=== PATIENT | male | born 1965 | race Caucasian/White ===

== ENCOUNTER 2021-07-24 14:17 | Outpatient (CLI) | payer OTHER, SELFPAY ==
--- NOTE | ~2021-07-24 | XR_ITS ---
EXAMINATION: XR chest 2V 07/24/2021 14:40 INDICATION: Dyspnea PROCEDURE: 2 view chest COMPARISON: Comparison to multiple prior studies sequentially, with oldest reviewed study dated 02/24. FINDINGS: The lungs are clear. The cardiomediastinal silhouette is within normal limits. There are no pleural effusions. There is no pneumothorax suspected. IMPRESSION: 1: NO ACUTE CARDIOPULMONARY DISEASE. Reviewed, dictated and finalized at location A. ADMINISTRATOR
== END 2021-07-24 14:18 | disposition home or self-care (01) ==
PROVIDERS: PCP Family Medicine; Visit Provider Internal Medicine Nephrology
DX: R06.00 Dyspnea, unspecified (principal)
CPT/HCPCS: 71046

== ENCOUNTER 2021-07-28 08:49 | Observation (INO) | payer OTHER, SELFPAY ==
[2021-07-28] VITALS (15 sets, daily range): BP systolic 118–154; BP diastolic 59–85; PULSE 60–117; RESP 16–22; TEMP 35.8–37.3; O2SAT 96–100; BMI 35.9
--- NOTE | ~2021-07-28 | XR_ITS ---
EXAMINATION: XR chest 2V DATE: 07/28/2021 09:16 INDICATION: Dyspnea on exertion. TECHNIQUE: Frontal and lateral views of the chest were obtained. COMPARISON: Chest 2 views 07/24/2021 FINDINGS: There is mild atelectasis in left lower lung zone. No pleural effusion or pneumothorax. The heart size is normal. IMPRESSION: 1. Mild atelectasis in left lower lung zone. Reviewed, dictated and finalized at location A. ORK SYSTEMS OPERATOR
--- NOTE | ~2021-07-28 | NM_ITS ---
EXAMINATION: NM koko stress w perfusion DATE: 07/30/2021 11:52 INDICATION: Dyspnea on exertion. TECHNIQUE: Rest images were obtained following intravenous administration of 10 mCi Tc99m tetrofosmin (Myoview). The patient was infused intravenously with Lexiscan (regadenoson). Then, 31 mCi Tc99m tet rofosmin (Myoview) was administered intravenously, and stress images were obtained. Data was reconstr ucted into short axis and horizontal and vertical long axis SPECT images. Gated SPECT images were als o obtained. COMPARISON: None. FINDINGS: There is no definite reversible or fixed perfusion abnormality to suggest ischemia or infar ction. There is no segmental wall motion abnormality. Left ventricular ejection fraction measures 6 7%. IMPRESSION: 1. No definite ischemia or infarct. 2. Normal left ventricular ejection fraction measuring 67%. Reviewed, dictated and finalized at location A. ORATE ASSOCIATE
[2021-07-28 09:01] LABS: Glucose Point of Care 405 mg/dl (65-105)
--- NOTE | 2021-07-28 09:07 | ECG_ITS ---
Measurements Intervals [place] Rate: 66 P: 23 WI: 143 QRS: -1 QRSD: 129 T: -2 QT: 380 QTc: 400 Interpretive Statements SINUS RHYTHM RIGHT BUNDLE BRANCH BLOCK [120+ ms QRS DURATION, UPRIGHT V1, 40+ ms S IN I/aVL/V4/V5/V6] ABNORMAL ECG NO PREVIOUS ECG AVAILABLE FOR COMPARISON Electronically Signed On 07-28-2021 14:31:31 ENROBING MACHINE FEEDER by Satinder Jiménez M.D.
--- NOTE | 2021-07-28 09:10 | ED.RECABL ---
HPI - Recheck/Abnormal Lab/Rx General Chief Complaint: Recheck/Abnormal Lab/Rx Stated Complaint: high blood sugar Time Seen by Provider: 07/28/21 08:53 Source: patient, RN notes reviewed and old records reviewed Mode of arrival: ambulatory Limitations: no limitations History of Present Illness HPI narrative: This is a 56 year old male with history of hypertension, hyperlipidemia , and microscopic polyangitis (kidney disease) who presents for evaluation of hyperglycemia. Patient checked his blood sugar this morning for the first time in several years and it was elevated to 426. He has been taking cellcept and prednisone to treat his glomerulonephritis. He was evaluated by Dr. Estes on 07/23/21 for symptoms of hyperglycemia. Patient has been having leg cramping, generalized weakness, increased thirst and urination for 1 week. Patient's prednisone is currently being tapered down due to patient's symptoms. His cellcept was increased and prednisone decreased at that visit, and patient is due to get labs drawn in 2 weeks. He has associated nausea with exertion. He is also complaining of some shortness of breath with exertion but state he is not really having chest pain. He denies fever , chills . He denies history of diabetes mellitus. Related Data Home Medications Medication Instructions Recorded Confirmed lisinopril 20 mg PO DAILY 07/28/21 07/28/21 metoprolol tartrate 50 mg PO BID 07/28/21 07/28/21 mycophenolate mofetil 500 mg PO BID 07/28/21 07/28/21 prednisone 20 mg PO TID 07/28/21 07/28/21 Allergies Allergy/AdvReac Type Severity Reaction Status Date / Time No Known Allergies Allergy Verified 07/28/21 09:00 Review of Systems Review of Systems: All systems reviewed & are unremarkable except as noted in HPI and below Constitutional: Constitutional: Denies chills, Denies fever(s) and Reports weakness Eyes: Eyes: Reports change in vision ENT: Reports dizziness and Denies sore throat Cardiovascular: Cardiovascular: Denies chest pain and Denies radiating jaw, neck or arm pain Respiratory: Respiratory: Reports cough and Reports dyspnea Gastrointestinal: Gastrointestinal: Denies abdominal pain, Denies diarrhea, Reports nausea and Denies vomiting Genitourinary: Genitourinary: Reports urinary frequency Endocrine: Endocrine: Reports fatigue, Reports polydipsia and Reports polyuria PMF Past Medical History Medical History (Updated 07/28/21 @ 18:04 by Sandra Jacobo MD) Hyperlipidemia Hypertension 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 Treated with plasmapheresis, pulse steroids, and Cytoxan. Now on mycophenolate mofetil. Followed by Dr. Drew Estes. Mike (2007) Stage 3 chronic kidney disease Surgical History Surgical History No pertinent past surgical history Family History Family History Father Diabetes mellitus Mother Diabetes mellitus Other Cerebrovascular accident Family history of Parkinson's disease Family history of cardiovascular disease Hypertension Social History Social History (Updated 07/28/21 @ 12:38 by Madonna Mota PA-C) Social History: Surrogate decision maker: Code status: Full code. Smoking packs per day: 1 Smoking cigarettes per day: 20.0 Years smoked: 3 Smoking pack-years: 3.00 Smoking status: Former smoker Alcohol intake: never Substance use: never Substance use type: does not use Spiritual care concerns: No Exam Const: General: no acute distress and alert Orientation/consciousness: patient oriented x3 Eyes: EOM: EOMs intact bilaterally Chest: Chest palpation & inspection: normal inspection of the chest Resp: Effort & Inspection: normal respiratory effort and no retractions Auscultation: clear to auscultation bilat
[2021-07-28] MEDS: SODIUM CHLORIDE 0.9% IV 1,000 ML 999 ML IV CONT ×2 (09:27→09:54)
[2021-07-28 09:29] LABS: Add Urine Microscopic? YES; Appearance Urine Clear (Clear); Bilirubin Urine Negative (Negative); Blood Urine 2+ (Negative); Color Urine Yellow (Yellow); Glucose Urine UA 3+ mg/dL (Negative); Ketones Urine Negative (Negative); Leukocyte Esterase Ur Negative LEU/UL (Negative); Nitrate Urine Negative (Negative); Protein Urine 1+ mg/dL (Negative); RBC Urine 0-2 /hpf (0-2); Specific Grav Ur 1.017 (1.001-1.035); Urobilinogen Urine Negative mg/dL (<2.0); WBC Urine 0-3 /hpf
[2021-07-28 09:30] LABS: Basophils Percent Auto 0.3 % (0.2-1.2); Hematocrit 42.4 % (42.0-52.0); Immature Granulocyte Absolute 0.66 K/mm3 (0.00-0.031); Immature Granulocyte Percent A 5.5 % (0-0.5); Lymphocytes Absolute Auto 1.13 K/mm3 (0.9-3.2); Lymphocytes Percent Auto 9.4 % (18.3-44.2); Mean Corpuscular Hemoglobin 28.6 pg (26-34); Mean Corpuscular Volume 86.7 fl (80-100); Mean Platelet Volume 9.3 fl (7.4-10.4); Monocytes Absolute Auto 0.4 K/mm3 (0.1-0.6); Monocytes Percent Auto 3.4 % (2.6-8.5); Neutrophils Absolute Auto 9.8 K/mm3 (1.3-6.7); Neutrophils Percent Auto 81.4 % (45.5-73.1); Platelet Count Result 161 k/mm3 (150-375); Red Blood Count 4.89 M/mm3 (4.6-6.20); Red Cell Distribution Width 14.6 % (11.5-14.5)
[2021-07-28 09:44] LABS: Alanine Aminotransferase 32 U/L (4-50); Albumin Level 3.7 g/dL (3.5-5.1); Alkaline Phosphatase 51 U/L (38-126); Anion Gap 7 mmol/L (8-16); Aspartate Amino Transferase 26 U/L (17-59); Bilirubin,Total 0.8 mg/dL (0.2-1.3); Blood Urea Nitrogen 70 mg/dL (9-20); Calcium 8.9 mg/dL (8.4-10.2); Carbon Dioxide 22 mmol/L (22-30); Chloride 101 mmol/L (98-107); Estimated CRCL calculation 53 ml/min; Estimated Glomerular Filt Rate 37; Glucose 398 mg/dL (65-110); Magnesium 2.9 mg/dL (1.6-2.3); Phosphorus 3.8 mg/dL (2.5-4.5); Potassium 5.2 mmol/L (3.4-5.0); Sodium 130 mmol/L (137-145)
[2021-07-28 09:50] LABS: Beta-Hydroxybutyrate/Acetoacetate 0.19 mmol/L (0.02-0.27)
[2021-07-28] MEDS: INSULIN HUMAN REGULAR (*BKC) 100 UNITS/ML 12 UNITS IV PUSH (09:53)
[2021-07-28 10:23] LABS: Glucose Point of Care 262 mg/dl (65-105)
--- NOTE | 2021-07-28 11:16 | PM.CNNEP ---
Assessment and Plan Assessment and plan (1) Stage 3b chronic kidney disease: Code(s): N18.32 - Chronic kidney disease, stage 3b Status: Chronic Assessment and Plan: baseline creatinine runs around 1.8 - 2.3mg/dl in the last year due to left overs from previous RPGN secondary to P-ANCA vasculitis/microscopic polyangiitis (2) Microscopic polyangiitis: Onset Date: 02/2015 Code(s): M31.7 - Microscopic polyangiitis Status: Chronic Assessment and Plan: diagnosed in 2014 by renal biopsy (although had pulmonary involvement as well) treated with 7 sessions of plasmapheresis, steroids, and cytoxan (with eventually weaning off of prednisone and cytoxan) unfortunately, recurrence noted by serologies, rising creatinine, and increased proteinuria in March/April 2021 restarted on steroids and now cellcept plan to wean steroids and titrate cellcept recheck/reassess for proteinuria (3) New onset type 2 diabetes mellitus: Code(s): E11.9 - Type 2 diabetes mellitus without complications Status: Acute Assessment and Plan: presumably precipitated by steroid use continue to wean steroids as tolerated -- go down to 40mg qday handle bender 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 Will continue to follow. History of Present Illness Reason for Consult Consult date: 07/28/21 Reason for consult: chronic renal failure Chief Complaint Chief complaint: Steroid induced hyperglycemia/acute on chronic karla History of Present Illness Narrative: The patient is a 56-year-old male with a past medical history as outlined below who presents to [facility] Emergency room for further evaluation of hyperglycemia. The patient has a known history of rapidly progressive [place] is secondary to microscopic polyangiitis with associated pulmonary involvement which was diagnosed in February 2015 by renal biopsy. At that time, was treated with a combination of plasmapheresis, pulse dose steroids with subsequent oral prednisone, and Cytoxan with a reasonable response to such therapy. Eventually, it was felt that his disease was in remission and he was weaned off these medications and had been doing reasonably well although he did have some residual renal dysfunction following insult to his kidneys. Unfortunately, outpatient serologies in late March/early April 2021 demonstrated his ANCA being positive once again with a concern that his microscopic polyangiitis had returned particularly since his creatinine and proteinuria had worsened as well. He was restarted on prednisone as well as Cellcept for treatment of this issue. He recently saw Dr. Estes about couple of weeks ago and at that time he had signs/symptoms of possible hyperglycemia with generalized weakness, leg cramps, increased thirst and urination as well as blurry vision. It was decided try to taper him off the prednisone for fear that this could be responsible although he was checking his blood sugars at home and they are running in the high 100s. However, today, he noted his blood sugar to be 426 which was quite higher than what ever had been previously and presented to the ER for further evaluation. Workup and evaluation emergency room demonstrated the patient be hemodynamically stable and his random blood sugar on arrival was 398. Subsequent testing including a chemistry showed a BUN an
[2021-07-28] MEDS: ASPIRIN 81 MG CHEWABLE TABLET 324 MG PO (11:41)
[2021-07-28 11:49] LABS: Hemoglobin A1C 9.1 % (<5.7)
--- NOTE | 2021-07-28 11:55 | PC.NURSE ---
This patient, Erasto Paz, was admitted to IMU Room 207-01. Patient/family oriented to hospital policies and general routines including ID bracelet, bed and alarms, visiting hours, pain management, procedures, bathroom and other care routines, personal items, smoking policy, room service/diet, and visiting hours. Information on how to activate the Rapid Response Team has been discussed. Patient/Family are encouraged to report perceived risks to care and to ask questions if they do not understand what they are told or what they should do.
[2021-07-28 12:25] LABS: Glucose Point of Care 181 mg/dl (65-105)
--- NOTE | 2021-07-28 12:30 | PM.IMHP ---
H&P: HPI History of Present Illness Date/Time: 07/28/21 12:30 Chief Complaint: High blood sugar. Narrative: This is a pleasant 56-year-old male with hypertension and microscopic polyangiitis who presented to the emergency department from home for evaluation of high blood sugar. He was initially diagnosed with microscopic polyangiitis with pulmonary involvement in February 2015 for which she was treated with plasmapheresis, steroids and Cytoxan which was eventually weaned and he has not been on any medications since approximately late 2018. His ANCA turned positive again within the last couple of months with increasing creatinine and proteinuria for which he was once again started on prednisone and mycophenolate mofetil. He saw Dr. Estes last week after developing generalized weakness, leg cramps, increased thirst and urination, and blurry vision that had been going on for about a week. The decision was made to taper him off the prednisone and he has been monitoring his glucose pretty closely at home. Apparently it had been running in the high 100s however today it was 426 and he came in for evaluation. Random glucose on arrival was 398 and a subsequent hemoglobin A1c was 9.1%. His BUN and creatinine were 70 and 1.90 respectively and he had mild electrolyte abnormalities including a sodium of 130 and a potassium of 5.2. All of those numbers have improved with IV fluid rehydration. It is also noted that troponins were drawn upon arrival to the emergency department they did come back mildly elevated at 0.050 and he was admitted to IMU for further monitoring. He denies having experienced any chest pain, however. Currently he is feeling pretty good and has no significant complaints. He denies fever, chills, sweats, cold and flu symptoms, chest pain, pleuritic pain, palpitations, shortness of breath, nausea, vomiting, diarrhea, and dysuria. He has not noticed a decrease in urine output, change in urine color, and he has not noticed any blood in the urine. Review of Systems Review of Systems: Twelve systems were reviewed and are negative except for as per HPI. 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 Treated with plasmapheresis, pulse steroids, and Cytoxan. Now on mycophenolate mofetil. Followed by Dr. Drew Estes. Obstructive sleep apnea on CPAP [place] (2008) Stage 3 chronic kidney disease Surgical History Surgical History No pertinent past surgical history Family History Family History Father Diabetes mellitus Mother Diabetes mellitus Other Cerebrovascular accident Family history of Parkinson's disease Family history of cardiovascular disease Hypertension Social History Social History (Updated 07/28/21 @ 20:53 by Madonna Mota PA-C) Social History: Surrogate decision maker: Chinedu Paz, son. Code status: Full code. Smoking packs per day: 1 Smoking cigarettes per day: 20.0 Years smoked: 3 Smoking pack-years: 3.00 Smoking status: Former smoker Alcohol intake: never Substance use: never Substance use type: does not use Additional living arrangements comments: Resides in [place]. 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 Meds Home Medications and Allergies Home Medications Medication Instructions Recorded Confirmed Type lisinopril 20 mg PO DAILY 07/28/21 07/28/21 History metoprolol tartrate 50 mg PO BID 07/28/21 07/28/21 History mycophenolate mofetil 500 mg PO BID 07/28/21 07/28/21 History prednisone 20 mg PO TID 07/28/21 07/28/21 History Allergies Allergy/AdvReac Type Severity Reaction Status Date / Time No Known Allergies Allergy Verified
[2021-07-28 12:58] LABS: Troponin I 0.049 ng/mL (0.000-0.034)
[2021-07-28 15:46] LABS: Anion Gap 7 mmol/L (8-16); Blood Urea Nitrogen 63 mg/dL (9-20); Carbon Dioxide 22 mmol/L (22-30); Chloride 104 mmol/L (98-107); Estimated CRCL calculation 55 ml/min; Estimated Glomerular Filt Rate 39; Glucose 384 mg/dL (65-110); Sodium 133 mmol/L (137-145)
[2021-07-28 16:16] LABS: Troponin I 0.044 ng/mL (0.000-0.034)
[2021-07-28] MEDS: INSULIN ASPART (*BKC) 100 UNITS/ML SUB-Q (16:40)
[2021-07-28] MEDS: mycophenolate mofetiL 250 MG CAPSULE 1000 MG PO (16:41)
[2021-07-28 16:55] LABS: Glucose Point of Care 347 mg/dl (65-105)
[2021-07-28] MEDS: polyethylene glycoL 3350 17 GM POWD.PACK PO (19:59)
[2021-07-28 20:43] LABS: Glucose Point of Care 285 mg/dl (65-105)
[2021-07-29] VITALS (16 sets, daily range): BP systolic 122–145; BP diastolic 60–71; PULSE 60–100; RESP 14–20; TEMP 36.1–36.6; O2SAT 97–100
--- NOTE | 2021-07-29 03:42 | PCRCNOTE ---
Patient dons and removes CPAP by himself. Patient was on CPAP most of the night with intermittent removal per patient
[2021-07-29 04:33] LABS: Hematocrit 38.4 % (42.0-52.0); Hemoglobin 12.7 g/dL (14.0-18.0); Immature Platelet Fraction Pct 2.1 % (0.9-11.2); Mean Corpuscular HGB Conc 33.1 g/dl (32-36); Mean Corpuscular Volume 87.7 fl (80-100); Mean Platelet Volume 9.5 fl (7.4-10.4); Platelet Count Result 126 k/mm3 (150-375); Red Blood Count 4.38 M/mm3 (4.6-6.20); Red Cell Distribution Width 14.6 % (11.5-14.5); White Blood Count 8.7 K/mm3 (4.5-10.0)
[2021-07-29 04:51] LABS: Alanine Aminotransferase 28 U/L (4-50); Albumin Level 3.1 g/dL (3.5-5.1); Alkaline Phosphatase 47 U/L (38-126); Anion Gap 5 mmol/L (8-16); Aspartate Amino Transferase 30 U/L (17-59); Bilirubin,Total 0.6 mg/dL (0.2-1.3); Blood Urea Nitrogen 55 mg/dL (9-20); Calcium 8.2 mg/dL (8.4-10.2); Carbon Dioxide 25 mmol/L (22-30); Chloride 104 mmol/L (98-107); Estimated CRCL calculation 58 ml/min; Estimated Glomerular Filt Rate 42; Glucose 199 mg/dL (65-110); Magnesium 2.4 mg/dL (1.6-2.3); Potassium 4.3 mmol/L (3.4-5.0); Sodium 134 mmol/L (137-145)
[2021-07-29] MEDS: mycophenolate mofetiL 250 MG CAPSULE 1000 MG PO ×2 (06:26→20:03)
[2021-07-29 08:10] LABS: Glucose Point of Care 217 mg/dl (65-105)
[2021-07-29] MEDS: EMPAGLIFLOZIN 10 MG TABLET PO (08:25)
[2021-07-29] MEDS: predniSONE 20 MG TABLET 40 MG PO (08:25)
[2021-07-29] MEDS: lisinopriL 20 MG TABLET PO (08:26)
[2021-07-29] MEDS: METOPROLOL TARTRATE 50 MG TAB PO ×2 (08:26→20:04)
[2021-07-29] MEDS: INSULIN ASPART (*BKC) 100 UNITS/ML SUB-Q ×3 (08:31→17:05)
--- NOTE | 2021-07-29 08:48 | PM.IMPN ---
Progress Note: A&P Assessment and Plan (1) New onset type 2 diabetes mellitus: Code(s): E11.9 - Type 2 diabetes mellitus without complications Status: Acute Assessment and Plan: Patient presents blurred vision, fatigue, weight loss and dyspnea on exertion and found to have a glucose of 398. He is on prednisone 60 mg for his microscopic polyangiitis. Most likely steroid induced diabetes. No history of diabetes but does have a strong family history. Patient received 12 units of IV insulin yesterday morning on presentation and started on empagliflozin this morning. Prednisone dose has been decreased to 40 mg. development educator and dietitian consult ordered. A1c is 9.1. Will continue with current regiment at this time and monitor. He may need a 2nd oral agent get him closer to goal. Continue sliding scale insulin. Hypoglycemia protocol available as needed. (2) Elevated troponin: Code(s): R77.8 - Other specified abnormalities of plasma proteins Status: Acute Assessment and Plan: Troponins are mildly elevated but have remained flat. EKG showing right bundle branch block but no acute ST T wave changes. Patient has had no chest pain but does have dyspnea on exertion over the past week as well as lightheadedness with walking. This symptom could be related to his untreated diabetes. Elevated troponins could be related to his poor clearance from his CKD. However, he does have risk factors and would benefit from cardiac evaluation. As such, will check echocardiogram. Lexiscan stress test in the morning. Further recommendations as course dictates. Resume aspirin. Check lipids. (3) Microscopic polyangiitis: Onset Date: 02/2015 Code(s): M31.7 - Microscopic polyangiitis Status: Chronic Assessment and Plan: Recently started back on steroids and CellCept as his ANCA turned positive again with an increase in creatinine and proteinuria. Prednisone is being weaned per Dr. Ayala as detailed above. (4) Stage 3 chronic kidney disease: Code(s): N18.30 - Chronic kidney disease, stage 3 unspecified Status: Acute Assessment and Plan: Residual disease from MPA. Creatinine rising recently due to recurrence of his MPA. Cr 1.9 on admission but better with hydration. Mild KEYUR from dehydration related to the untreated DM. Unclear on baseline. BUN elevation related to CKD and steroids. (5) Hypertension: Code(s): I10 - Essential (primary) hypertension Status: Chronic Assessment and Plan: Patient's blood pressure was reviewed on 07/29 Blood pressure remains well controlled. Will continue current medications. (6) Electrolyte abnormality: Code(s): E87.8 - Other disorders of electrolyte and fluid balance, not elsewhere classified Status: Acute Assessment and Plan: Mild hyponatremia and hyperkalemia present on admission. Sodium better at 134 and potassium normalized with IV fluid rehydration. Follow Subjective Date/time seen: 07/29/21 08:48 Interval history: 56yo male with NELDA, CKD, HTN and microscopic polyangiitis here for blurry vision, fatigue and EPSTEIN and found to have DM. Patient's symptoms began about a week ago. Also had weight loss as well. Denies any chest pain. No fever or chills. He was constipated with MiraLax, he is now having bowel movements. Patient has been having shortness of breath with exertion as well as lightheadedness when he walks to the bathroom for example. His last stress test was 6-7 years ago. He is compliant with his BiPAP at night. Exam Narrative: AF 97.0 128/66 100 18 98% ra Gen - NARD Chest - CTA bilaterally, nml RR CV - RRR S1/S2. No murmur. Tele showing STach at times Abd - Soft, obese, NT. Ext - No pedal edema. Neuro - Alert and oriented. Nonfocal exam. Psych - Nml mood and affect Skin - Warm and dry Objective Data Vital Signs Vital Signs: Vital Signs - 24 hr
[2021-07-29] MEDS: ASPIRIN 81 MG CHEWABLE TABLET PO (09:55)
[2021-07-29] MEDS: ENOXAPARIN 40 MG/0.4 ML SYRINGE SUB-Q (09:55)
--- NOTE | 2021-07-29 11:12 | P.PNNP_ITS ---
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 (2) Microscopic polyangiitis: Onset Date: 02/2015 Code(s): M31.7 - Microscopic polyangiitis Status: Chronic Assessment and Plan: * diagnosed in 2014 by renal biopsy (although had pulmonary involvement as well) * treated with 7 sessions of plasmapheresis, steroids, and cytoxan (with eventually weaning off of prednisone and cytoxan) * unfortunately, recurrence noted by serologies, rising creatinine, and increased proteinuria in March/April 2021 * restarted on steroids and now cellcept * plan to wean steroids and titrate cellcept * recheck/reassess for proteinuria (3) New onset type 2 diabetes mellitus: Code(s): E11.9 - Type 2 diabetes mellitus without complications Status: Acute Assessment and Plan: * presumably precipitated by steroid use * continue to wean steroids as tolerated -- go down to 40mg qday * primary special educator and security attendant to see * follow accuchecks and on SSI as well as jardiance for now * hopefully, should continue to improve as steroids are weaned (4) Hypertension: Code(s): I10 - Essential (primary) hypertension Status: Chronic Assessment and Plan: * reasonable control * continue lisinopril (5) Elevated troponin: Code(s): R77.8 - Other specified abnormalities of plasma proteins Status: Acute Assessment and Plan: * as noted by initial labs in ER * stress test ordered given symptoms as well as risk factors Will continue to follow. Subjective Date/time seen: 07/29/21 11:12 No apparent issues or events overnight or earlier this AM; feels reasonably well at the time of my visit; no other acute complaints voiced. Exam Narrative: General: WD/WN male in NAD Heart: normal S1 and S2; no rub Lungs: clear to auscultation Abdomen: soft, nontender, nondistended, positive bowel sounds Extremities: no cyanosis or clubbing; no edema Skin: warm and dry Objective Data Vital Signs Vital Signs: Vital Signs Temp Pulse Resp BP Pulse Ox 07/29/21 10:00 77 07/29/21 08:26 100 07/29/21 08:00 36.1 C L 83 18 128/66 98 07/29/21 06:00 88 07/29/21 04:00 81 16 99 07/29/21 03:45 36.3 C L 60 18 145/68 H 100 07/29/21 02:00 74 07/28/21 23:51 81 16 99 07/28/21 23:50 36.4 C L 86 18 134/67 98 07/28/21 22:55 85 96 07/28/21 20:00 81 16 99 07/28/21 19:33 37.3 C 81 16 118/59 L 99 07/28/21 18:20 85 96 07/28/21 18:00 83 07/28/21 16:42 36.5 C 66 22 H 154/68 H 99 07/28/21 16:00 65 07/28/21 14:00 70 07/28/21 12:23 35.8 C L 60 20 150/75 H 100 07/28/21 12:00 67 07/28/21 11:47 62 16 151/84 H 100 Intake/Output Intake/Output: Intake & Output 07/26/21 07/27/21 07/28/21 07/29/21 23:59 23:59 23:59 23:59 Intake Total 2920 650 Balance 2920 650 Meds/Results Medica
--- NOTE | 2021-07-29 11:12 | PM.PNNEP ---
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 (2) Microscopic polyangiitis: Onset Date: 02/2015 Code(s): M31.7 - Microscopic polyangiitis Status: Chronic Assessment and Plan: diagnosed in 2014 by renal biopsy (although had pulmonary involvement as well) treated with 7 sessions of plasmapheresis, steroids, and cytoxan (with eventually weaning off of prednisone and cytoxan) unfortunately, recurrence noted by serologies, rising creatinine, and increased proteinuria in April 2021 restarted on steroids and now cellcept plan to wean steroids and titrate cellcept recheck/reassess for proteinuria (3) New onset type 2 diabetes mellitus: Code(s): E11.9 - Type 2 diabetes mellitus without complications Status: Acute Assessment and Plan: presumably precipitated by steroid use continue to wean steroids as tolerated -- go down to 40mg qday special education paraeducator and geospatial image analyst to see follow accuchecks and on SSI as well as jardiance for now hopefully, should continue to improve as steroids are weaned (4) Hypertension: Code(s): I10 - Essential (primary) hypertension Status: Chronic Assessment and Plan: reasonable control continue lisinopril (5) Elevated troponin: Code(s): R77.8 - Other specified abnormalities of plasma proteins Status: Acute Assessment and Plan: as noted by initial labs in ER stress test ordered given symptoms as well as risk factors Will continue to follow. Subjective Date/time seen: 07/29/21 11:12 No apparent issues or events overnight or earlier this AM; feels reasonably well at the time of my visit; no other acute complaints voiced. Exam Narrative: General: WD/WN male in NAD Heart: normal S1 and S2; no rub Lungs: clear to auscultation Abdomen: soft, nontender, nondistended, positive bowel sounds Extremities: no cyanosis or clubbing; no edema Skin: warm and dry Objective Data Vital Signs Vital Signs: Vital Signs Temp Pulse Resp BP Pulse Ox 07/29/21 10:00 77 07/29/21 08:26 100 07/29/21 08:00 36.1 C L 83 18 128/66 98 07/29/21 06:00 88 07/29/21 04:00 81 16 99 07/29/21 03:45 36.3 C L 60 18 145/68 H 100 07/29/21 02:00 74 07/28/21 23:51 81 16 99 07/28/21 23:50 36.4 C L 86 18 134/67 98 07/28/21 22:55 85 96 07/28/21 20:00 81 16 99 07/28/21 19:33 37.3 C 81 16 118/59 L 99 07/28/21 18:20 85 96 07/28/21 18:00 83 07/28/21 16:42 36.5 C 66 22 H 154/68 H 99 07/28/21 16:00 65 07/28/21 14:00 70 07/28/21 12:23 35.8 C L 60 20 150/75 H 100 07/28/21 12:00 67 07/28/21 11:47 62 16 151/84 H 100 Intake/Output Intake/Output: Intake & Output 07/26/21 07/27/21 07/28/21 07/29/21 23:59 23:59 23:59 23:59 Intake Total 2920 650 Balance 2920 650 Meds/Results Medications: Active Medications Generic Name Dose Route Start Last Admin Trade Name Freq PRN Reason Stop Dose Admin Aspirin 81 mg 07/29/21 09:05 07/29/21 09:55 Aspirin 81 Mg Chewable Tablet PO 81 mg DAILY@0800 LIZANDRO Administration Dextrose 12.5 gm 07/28/21 13:00 Dextrose 50% 25 Gm/50 Ml Syringe IV PUSH PRN PRN Hypoglycemia Protocol Empagliflozin 10 mg 07/29/21 09:00 07/29/21 08:25 Empagliflozin 10 Mg Tablet PO 10 mg DAILY LIZANDRO Administration Enoxaparin Sodium 40 mg 07/30/21 09:00 Enoxaparin 40 Mg/0.4 Ml Syringe SUB-Q DAILY LIZANDRO Glucagon 1 mg 07/28/21 13:00 Glucagon For Inj 1 Mg Vial IM PRN PRN Hypoglycemia Protocol Glucose 15 gm 07/28/21 13:00 Gl
[2021-07-29 11:58] LABS: Glucose Point of Care 237 mg/dl (65-105)
[2021-07-29] MEDS: GLIMEPIRIDE 1 MG TABLET PO (12:53)
[2021-07-29 13:25] LABS: Creatinine Urine 52.4 mg/dL; Total Protein Urine Random 30 mg/dL; Ur Ttl Prot Creatinine Ratio 0.57 mg/mg (0-0.20)
[2021-07-29 15:49] LABS: Glucose Point of Care 320 mg/dl (65-105)
[2021-07-29 20:11] LABS: Glucose Point of Care 214 mg/dl (65-105)
[2021-07-30] VITALS (10 sets, daily range): BP systolic 107–120; BP diastolic 53–76; PULSE 60–90; RESP 16–20; TEMP 36–36.7; O2SAT 96–99; BMI 34.9
--- NOTE | 2021-07-30 | EST_ITS ---
Patient Info Name: Erasto Paz Age: 56 years : 1965 Gender: Male Ht: 71 in Wt: 250 lbs BSA: 2.42 m2 HR: 89 bpm BP: 112 / 65 mmHg Heart Rhythm: Sinus Rhythm Exam Date: 07/30/2021 10:50 AM Exam Location: [facility] Stress Patient Status: Outpatient Admit Date: 07/28/2021 Staff Ordering Physician: Tariq Engel MD Attending Provider: Denilson Ramsay MD Exercise Technologist: Luz Maria Mcdonnell CT Exercise Physician: Seth Gayle DO Exam Type: CA stress koko w NM Study Info A regadenoson stress test was performed. Summary 1. 1. Negative lexiscan stress test for ischemic ST changes by ECG criteria. 2. 2. Stable hemodynamics throughout the test. 3. 3. Nuclear scan to follow and will be reported separately. Please correlate with it. 4. 4. Patient informed of the above results. Protocol: Lexiscan Stress ECG Details Stage: REST Duration (min): 1 min : 3 sec HR (bpm): 89 SBP (mmHg): 112 DBP (mmHg): 65 Stage: REST Duration (min): 16 min : 37 sec HR (bpm): 76 SBP (mmHg): 112 DBP (mmHg): 65 Stage: STAGE 1 Duration (min): 1 min : 0 sec HR (bpm): 92 SBP (mmHg): 109 DBP (mmHg): 75 Stage: RECOVERY Duration (min): 1 min : 0 sec HR (bpm): 102 SBP (mmHg): 109 DBP (mmHg): 75 Stage: RECOVERY Duration (min): 2 min : 0 sec HR (bpm): 96 SBP (mmHg): 109 DBP (mmHg): 75 Stage: RECOVERY Duration (min): 3 min : 0 sec HR (bpm): 98 SBP (mmHg): 97 DBP (mmHg): 74 Stage: RECOVERY Duration (min): 3 min : 50 sec HR (bpm): 96 SBP (mmHg): 98 DBP (mmHg): 72 Rest HR: 76 bpm Peak HR: 103 bpm Rest Sys BP: 112 mmHg Peak Sys BP: 109 mmHg Max Pred HR: 165 bpm % Max Pred HR: 62 % Target HR: 140 bpm Max RPP: 11,227 bpm*mmHg Termination Reason: Completed protocol Cardiac Symptoms: Shortness of breath Total Time: 1 min : 0 sec Rest Nunez BP: 65 mmHg Peak Nunez BP: 75 mmHg Total Dose: 0.4 mg Resting ECG Sinus rhythm, RBBB. Stress ECG No ST changes. Arrhythmias None. Report Signatures
[2021-07-30 04:48] LABS: Hematocrit 40.3 % (42.0-52.0); Hemoglobin 13.4 g/dL (14.0-18.0); Mean Corpuscular HGB Conc 33.3 g/dl (32-36); Mean Corpuscular Hemoglobin 28.9 pg (26-34); Mean Corpuscular Volume 86.9 fl (80-100); Mean Platelet Volume 9.1 fl (7.4-10.4); Platelet Count Result 133 k/mm3 (150-375); Red Blood Count 4.64 M/mm3 (4.6-6.20); Red Cell Distribution Width 14.6 % (11.5-14.5); White Blood Count 10.3 K/mm3 (4.5-10.0)
[2021-07-30 05:00] LABS: Albumin Level 3.3 g/dL (3.5-5.1); Anion Gap 3 mmol/L (8-16); Blood Urea Nitrogen 52 mg/dL (9-20); Calcium 8.5 mg/dL (8.4-10.2); Carbon Dioxide 27 mmol/L (22-30); Chloride 104 mmol/L (98-107); Cholesterol 274 mg/dL (0-200); Estimated CRCL calculation 49 ml/min; Estimated Glomerular Filt Rate 35; Glucose 158 mg/dL (65-110); HDL Direct 36 mg/dL; Magnesium 2.5 mg/dL (1.6-2.3); Phosphorus 3.7 mg/dL (2.5-4.5); Potassium 4.1 mmol/L (3.4-5.0); Sodium 134 mmol/L (137-145); Triglycerides 356 mg/dL (<150)
[2021-07-30 05:12] LABS: LDL Cholesterol Direct 156 mg/dL
[2021-07-30 05:17] LABS: Band Neutrophils Percent 6 % (0-6); Lymphocytes Absolute Manual 2.57 K/mm3 (1.1-4.5); Monocytes Percent Manual 3 % (3-9); Neutrophils Absolute Manual 7.41 K/mm3 (1.3-6.7); Neutrophils Percent Manual 66 % (46-73); Platelet Estimate Adequate (Adequate); Total Cells Counted 100
[2021-07-30 05:18] LABS: Atypical Lymphocytes Present
--- NOTE | 2021-07-30 06:00 | ECHO_ITS ---
Patient Info Name: Erasto Paz Age: 56 years : 1965 Gender: Male Ht: 71 in Wt: 257 lbs BSA: 2.46 m2 HR: 67 bpm BP: 107 / 53 mmHg Technical Quality: Good Exam Date: 07/30/2021 8:20 AM Exam Location: [facility] Pulmonary Patient Status: Inpatient Admit Date: 07/28/2021 Staff Ordering Physician: Sandra Jacobo MD Mold Technician: Aureliano Blank, RAJANI, RT Attending Provider: Denilson Ramsay MD Referring Physician: dOalis SANCHEZ; Exam Type: CA echo dop color flow w con Study Info Indications R06.00 - Dyspnea, unspecified Complete two-dimensional, color flow and Doppler transthoracic echocardiogram is performed with contrast to opacify the left ventricle and to improve the deliniation of the left ventricle endocardial borders. Summary 1. Left ventricular chamber dimension is normal. 2. Definity contrast administered improved wall motion interpretation. 3. Left ventricular systolic function is normal, estimated at 60-65%. 4. There is mildly increased left ventricular wall thickness. 5. The left ventricular diastolic function is grade I diastolic dysfunction. 6. E/e' 7 is not elevated. 7. No pulmonary hypertension, estimated pulmonary arterial systolic pressure is 31 mmHg. Left Ventricle E/e' 7 is not elevated. Definity contrast administered improved wall motion interpretation. Left ventricular chamber dimension is normal. Left ventricular systolic function is normal, estimated at 60-65%. There is mildly increased left ventricular wall thickness. The left ventricular diastolic function is grade I diastolic dysfunction. Right Ventricle Right ventricular systolic function is normal and with normal TAPSE 2.0 cm. Right ventricular chamber dimension is normal. Left Atria Left atrial chamber dimension is normal. Right Atria Right atrial chamber dimension is normal. Aortic Valve The aortic valve is trileaflet. There is no aortic valve stenosis. There is no aortic valve regurgitation. Pulmonic Valve There is no pulmonic regurgitation. Mitral Valve There is no mitral valve stenosis. There is no mitral valve regurgitation. Tricuspid Valve There is no tricuspid valve regurgitation. No pulmonary hypertension, estimated pulmonary arterial systolic pressure is 31 mmHg. Pericardium/Pleural There is no pericardial effusion. Inferior Vena Cava Normal inferior vena cava with >50% collapse upon inspiration consistent with normal right atrial pressure, 5 mmHg. Aorta The aortic root size at the sinus of Valsalva is normal. Left Ventricular Outflow Tract Name Value Normal LVOT 2D LVOT Diameter 1.88 cm LVOT Doppler LVOT Peak Gradient 5 mmHg LVOT Mean Gradient 3 mmHg LVOT VTI 23.05 cm LVOT VTI/AV VTI Ratio 1.15 LVOT Stroke Volume 63.92 ml LVOT CO 4.71 l/min LVOT CI 1.92 L/min/m2 Mitral Valve Name
[2021-07-30] MEDS: PERFLUTREN LIPID MICROSPHERES 1.5 ML VIAL DILUTED TO 10 ML TOTAL VOLUME IV PUSH (08:25)
--- NOTE | 2021-07-30 08:26 | IVDEFINITY ---
Prior to administration of IV Definity the patient was educated on the risks and benefits of the imaging enhancing agent including potential adverse side effects. The patient verbalized understanding. Allergies were verified. No exclusion criteria were identified and at least one of the following inclusion criteria were met: 1) physician request, 2) patient technically difficult to image (per the [place] [employer] guidelines of two or more segments not discernable within the apical view), or 3) questionable left ventricular function. ?
[2021-07-30 09:22] LABS: Glucose Point of Care 140 mg/dl (65-105)
[2021-07-30] MEDS: METOPROLOL TARTRATE 50 MG TAB PO (09:48)
[2021-07-30] MEDS: GLIMEPIRIDE 1 MG TABLET PO ×2 (09:48→17:03)
[2021-07-30] MEDS: EMPAGLIFLOZIN 10 MG TABLET PO (09:48)
[2021-07-30] MEDS: predniSONE 20 MG TABLET 40 MG PO (09:49)
[2021-07-30] MEDS: lisinopriL 20 MG TABLET PO (09:49)
[2021-07-30] MEDS: mycophenolate mofetiL 250 MG CAPSULE 1000 MG PO (09:49)
[2021-07-30] MEDS: ENOXAPARIN 40 MG/0.4 ML SYRINGE SUB-Q (09:50)
[2021-07-30] MEDS: ASPIRIN 81 MG CHEWABLE TABLET PO (09:51)
--- NOTE | 2021-07-30 12:46 | P.PNNP_ITS ---
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 (2) Microscopic polyangiitis: Onset Date: 02/2015 Code(s): M31.7 - Microscopic polyangiitis Status: Chronic Assessment and Plan: * diagnosed in 2014 by renal biopsy (although had pulmonary involvement as well) * treated with 7 sessions of plasmapheresis, steroids, and cytoxan (with eventually weaning off of prednisone and cytoxan) * unfortunately, recurrence noted by serologies, rising creatinine, and increased proteinuria in March/April 2021 * restarted on steroids and now cellcept * plan to wean steroids and titrate cellcept * recheck/reassess for proteinuria (3) New onset type 2 diabetes mellitus: Code(s): E11.9 - Type 2 diabetes mellitus without complications Status: Acute Assessment and Plan: * presumably precipitated by steroid use * continue to wean steroids as tolerated -- down to 40mg qday * safety director and postdoctoral scientist to see * started on oral hypoglycemic agents * hopefully, should continue to improve as steroids are weaned (4) Hypertension: Code(s): I10 - Essential (primary) hypertension Status: Chronic Assessment and Plan: * reasonable control * continue lisinopril (5) Elevated troponin: Code(s): R77.8 - Other specified abnormalities of plasma proteins Status: Acute Assessment and Plan: * as noted by initial labs in ER * follow-up on stress test results Will continue to follow. Subjective Date/time seen: 07/30/21 12:46 Appears to be doing reasonably well at the time of my visit; no new issues or problems to report; blood sugar control better; s/p stress test this AM and tolerated reasonably well; no other acute issues/events overnight or earlier this AM. Exam Narrative: General: WD/WN male in NAD Heart: normal S1 and S2; no rub Lungs: clear to auscultation Abdomen: soft, nontender, nondistended, positive bowel sounds Extremities: no cyanosis or clubbing; no edema Skin: warm and dry Objective Data Vital Signs Vital Signs: Vital Signs Temp Pulse Resp BP Pulse Ox 03/07/22 12:00 36.0 C L 77 18 114/76 98 07/30/21 09:48 74 07/30/21 08:00 36.4 C L 90 16 120/70 99 07/30/21 04:41 68 96 07/30/21 04:00 36.7 C 87 18 107/53 L 99 07/30/21 02:00 63 07/30/21 00:11 63 96 07/30/21 00:00 87 18 99 07/29/21 22:00 62 07/29/21 20:34 81 97 07/29/21 20:04 87 07/29/21 20:00 36.6 C 87 18 130/60 99 07/29/21 18:00 77 07/29/21 16:00 36.5 C 82 20 128/71 97 07/29/21 15:29 79 16 99 07/29/21 13:56 69 Intake/Output Intake/Output: Intake & Output 07/27/21 07/28/21 07/29/21 07/30/21 23:59 23:59 23:59 23:59 Intake Total 2920 1370 350 Output Total 850 700 Balance 2920 520 -350 Meds/Results Medications: Active Medications Generic Name Dose
--- NOTE | 2021-07-30 12:46 | PM.PNNEP ---
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 (2) Microscopic polyangiitis: Onset Date: 02/2015 Code(s): M31.7 - Microscopic polyangiitis Status: Chronic Assessment and Plan: diagnosed in 2014 by renal biopsy (although had pulmonary involvement as well) treated with 7 sessions of plasmapheresis, steroids, and cytoxan (with eventually weaning off of prednisone and cytoxan) unfortunately, recurrence noted by serologies, rising creatinine, and increased proteinuria in March/April 2021 restarted on steroids and now cellcept plan to wean steroids and titrate cellcept recheck/reassess for proteinuria (3) New onset type 2 diabetes mellitus: Code(s): E11.9 - Type 2 diabetes mellitus without complications Status: Acute Assessment and Plan: presumably precipitated by steroid use continue to wean steroids as tolerated -- down to 40mg qday environmental educator and visual merchandise manager to see started on oral hypoglycemic agents hopefully, should continue to improve as steroids are weaned (4) Hypertension: Code(s): I10 - Essential (primary) hypertension Status: Chronic Assessment and Plan: reasonable control continue lisinopril (5) Elevated troponin: Code(s): R77.8 - Other specified abnormalities of plasma proteins Status: Acute Assessment and Plan: as noted by initial labs in ER follow-up on stress test results Will continue to follow. Subjective Date/time seen: 07/30/21 12:46 Appears to be doing reasonably well at the time of my visit; no new issues or problems to report; blood sugar control better; s/p stress test this AM and tolerated reasonably well; no other acute issues/events overnight or earlier this AM. Exam Narrative: General: WD/WN male in NAD Heart: normal S1 and S2; no rub Lungs: clear to auscultation Abdomen: soft, nontender, nondistended, positive bowel sounds Extremities: no cyanosis or clubbing; no edema Skin: warm and dry Objective Data Vital Signs Vital Signs: Vital Signs Temp Pulse Resp BP Pulse Ox 07/30/21 12:00 36.0 C L 77 18 114/76 98 07/30/21 09:48 74 07/30/21 08:00 36.4 C L 90 16 120/70 99 07/30/21 04:41 68 96 07/30/21 04:00 36.7 C 87 18 107/53 L 99 07/30/21 02:00 63 07/30/21 00:11 63 96 07/30/21 00:00 87 18 99 07/29/21 22:00 62 07/29/21 20:34 81 97 07/29/21 20:04 87 07/29/21 20:00 36.6 C 87 18 130/60 99 07/29/21 18:00 77 07/29/21 16:00 36.5 C 82 20 128/71 97 07/29/21 15:29 79 16 99 07/29/21 13:56 69 Intake/Output Intake/Output: Intake & Output 07/27/21 07/28/21 07/29/21 07/30/21 23:59 23:59 23:59 23:59 Intake Total 2920 1370 350 Output Total 850 700 Balance 2920 520 -350 Meds/Results Medications: Active Medications Generic Name Dose Route Start Last Admin Trade Name Freq PRN Reason Stop Dose Admin Aspirin 81 mg 07/29/21 09:05 07/30/21 09:51 Aspirin 81 Mg Chewable Tablet PO 81 mg DAILY@0800 LIZANDRO Administration Dextrose 12.5 gm 07/28/21 13:00 Dextrose 50% 25 Gm/50 Ml Syringe IV PUSH PRN PRN Hypoglycemia Protocol Empagliflozin 10 mg 07/29/21 09:00 07/30/21 09:48 Empagliflozin 10 Mg Tablet PO 10 mg DAILY LIZANDRO Administration Enoxaparin Sodium 40 mg 07/30/21 09:00 07/30/21 09:50 Enoxaparin 40 Mg/0.4 Ml Syringe SUB-Q 40 mg DAILY LIZANDRO Administration Glimepiride 1 mg 07/30/21 08:00 07/30/21 09:48 Glimepiride 1 Mg Tablet PO 1 mg BIDWM LIZANDRO Administration Glucagon 1 mg 07/28/21 13:00 Glucagon For Inj 1 Mg Vial IM
[2021-07-30 13:16] LABS: Glucose Point of Care 212 mg/dl (65-105)
--- NOTE | 2021-07-30 15:28 | PM.DS ---
DS: Admitting Diagnosis Discharge Date 07/30/21 Admitting Diagnosis Elevated blood glucose DS: Discharge Diagnosis Discharge Diagnosis (1) New onset type 2 diabetes mellitus: Code(s): E11.9 - Type 2 diabetes mellitus without complications Status: Acute (2) Elevated troponin: Code(s): R77.8 - Other specified abnormalities of plasma proteins Status: Acute (3) Microscopic polyangiitis: Onset Date: 02/2015 Code(s): M31.7 - Microscopic polyangiitis Status: Chronic (4) Stage 3 chronic kidney disease: Code(s): N18.30 - Chronic kidney disease, stage 3 unspecified Status: Acute (5) Hypertension: Code(s): I10 - Essential (primary) hypertension Status: Chronic DS: Summary Hospital Course Reason for hospitalization: 56yo male with NELDA, CKD, HTN and microscopic polyangiitis here for blurry vision, fatigue and EPSTEIN and found to have DM. Please see H&P for details. Hospital Course: Patient presents blurred vision, fatigue, weight loss and dyspnea on exertion and found to have a glucose of 398. He is on prednisone 60 mg for his microscopic polyangiitis. Recently started back on steroids and CellCept as his ANCA turned positive again with an increase in creatinine and proteinuria. Most likely steroid induced diabetes. No history of diabetes but does have a strong family history. Patient received 12 units of IV insulin on presentation and started on empagliflozin. A1c 9.2. Prednisone dose was decreased to 40 mg daily. Amaryl added. certified lactation educator and dietitian consult placed. Monitored with sliding scale insulin. Hypoglycemia protocol was available as needed. Patient was educated about his diabetes as well. Residual renal disease from MPA. Creatinine rising recently due to recurrence of his MPA. Cr 1.9 on admission and remained stable. Troponins were mildly elevated but flat. EKG showing right bundle branch block but no acute ST T wave changes. Patient has had no chest pain but does have dyspnea on exertion over the past week as well as lightheadedness with walking. Echo showing EF 60-65%, diastolic dysfunction Grade I. Lexiscan stress test performed and was negative for any inducible ischemia. Glucose became better controlled but not at goal. Encouraged patient to lead healthy lifestyle and this was discussed in detail. Patient overall did well and was able to be discharged home on 07/30/21. Status at Discharge Cognitive/behavioral status at discharge: Stable Time Spent with Patient Time attestation: Total time spent providing and/or coordinating discharge services: 37 minutes Time spent: Greater than 30 minutes Exam Narrative: AF 96.8 114/76 77 18 98% ra Gen - NARD Chest - CTA bilaterally, nml RR CV - RRR S1/S2. Tele showing no significant dysrhythmias Abd - Soft, obese, NT. Ext - No pedal edema. Psych - Nml mood and affect Skin - Warm and dry DS: Data Data Completed and Pending Labs on day of discharge: Labs from last 24 hours 07/30/21 07/30/21 07/30/21 11:55 08:40 04:28 WBC RBC Hgb Hct MCV MCH MCHC RDW Plt Count MPV Immature Gran % (Auto) Neut % (Auto) Lymph % (Auto) [place] % (Auto) Eos % (Auto) Baso % (Auto) Lymph # (Auto) [place] # (Auto) Eos # (Auto) Baso # (Auto) Abs Immat Gran (auto) Absolute Neuts (auto) Absolute Nucleated RBC Total Counted Neutrophils % (Manual) Band Neutrophils % Lymphocytes % (Manual) Monocytes % (Manual) Nucleated RBC % Abs Neuts (Manual) Abs Lymphs (Manual) Abs Monocytes (Manual) Atypical Lymphocytes Platelet Estimate Sodium 134 L Potassium 4.1 Chloride 104 Carbon Dioxide 27 Anion Gap 3 L BUN 52 H Creatinine 2.00 H Estim Creat Clear Calc 49 Estimated GFR 35 L Glucose 158 H POC Capillary Glucose 212 H 140 H Calcium 8.5 Phosphorus 3.7 Magnesium
[2021-07-30 16:44] LABS: Glucose Point of Care 314 mg/dl (65-105)
[2021-07-30] MEDS: INSULIN ASPART (*BKC) 100 UNITS/ML SUB-Q (17:03)
== END 2021-07-30 18:00 | disposition home or self-care (01) ==
LOC: ANHED 10:12 → ANHIMU 11:52
PROVIDERS: Internal Medicine Nephrology; Physician Assistant; Admitting Provider Family Medicine; Emergency Provider General Practice; PCP Family Medicine; Visit Provider Internal Medicine
DX: E11.65 Type 2 diabetes mellitus with hyperglycemia (principal); I12.9 Hypertensive chronic kidney disease with stage 1 through stage 4 chronic kidney disease, or unspecified chronic kidney disease; N18.32 Chronic kidney disease, stage 3b; M31.7 Microscopic polyangiitis; E87.8 Other disorders of electrolyte and fluid balance, not elsewhere classified; E87.1 Hypo-osmolality and hyponatremia; E78.5 Hyperlipidemia, unspecified; E87.5 Hyperkalemia; G47.33 Obstructive sleep apnea (adult) (pediatric); H53.8 Other visual disturbances; R53.1 Weakness; R77.8 Other specified abnormalities of plasma proteins; R06.09 Other forms of dyspnea; Z87.891 Personal history of nicotine dependence
CPT/HCPCS: 36415; 71046; 78452; 80048; 80053; 80061; 80069; 81001; 81050; 82010; 82570; 82948; 83036; 83735; 84100; 84156; 84484; 85025; 85027; 85055; 93005; 93017; 94660; 96361; 96372; 96374; 99285; A9270; A9502; C8929; G0378; J1650; J1815; J2785; J7030; J7512; J7517; Q9957

== ENCOUNTER 2021-08-16 15:09 | Emergency (ER) | payer OTHER, SELFPAY ==
--- NOTE | ~2021-08-16 | XR_ITS ---
EXAMINATION: XR abdomen obstructive series DATE: 08/16/2021 15:57 INDICATION: Mid epigastric pain TECHNIQUE: Upright and supine views of the abdomen were obtained. COMPARISON: None. FINDINGS: The abdomen is relatively gasless. No free intraperitoneal gas is identified. There is a qu estionable mildly dilated small bowel loop of the mid abdomen. There are minimal airspace opacities o f the left lung base. IMPRESSION: 1. Relatively gasless abdomen which is nonspecific but can be seen in the setting of bowel obstructio n. Consider further evaluation with CT. 2. Left basilar airspace opacity, likely atelectasis. Reviewed, dictated and finalized at location B. IMPRESSION: 1. Relatively gasless abdomen which is nonspecific but can be seen in the setti ng of bowel obstruction. Consider further evaluation with CT. 2. Left basilar airspace opacity, likely atelectasis.
--- NOTE | ~2021-08-16 | CT_ITS ---
EXAMINATION: CT abdomen pelvis w con EXAM DATE: 08/16/2021 17:49 INDICATION: Possible obstruction. Epigastric pain, constipation. TECHNIQUE: Spiral CT of the abdomen and pelvis was performed following intravenous injection of 100 m L Omnipaque 350. Axial, coronal and sagittal images of the abdomen and pelvis were reviewed. The do se-length product (DLP) for this examination was 1373.20 mGy-cm. The exposure was tailored according to patient size (auto mA exposure control), and iterative reconstruction (ASIR) was used as addition al dose reduction technique. There is no prior study for comparison. FINDINGS: The liver, spleen, adrenal glands and pancreas are unremarkable. Gallbladder is unremarkab le. No biliary obstruction. Portal and splenic veins are patent. Kidneys enhance symmetrically. T here is no hydronephrosis. The prostate is unremarkable. The bladder is unremarkable. There is no retroperitoneal or pelvic lymphadenopathy. There is mild scattered arteriosclerotic disease. Small right to moderate right, small left inguinal fat-containing hernias. There are no findings to suggest appendicitis. The stomach and small bowel are unremarkable. There is moderate amount of colonic stool. There is mild sigmoid colonic diverticulosis. There is no adjac ent inflammatory change to suggest diverticulitis. The heart is normal in size. There are no perica rdial or pleural effusions. The lung bases are unremarkable. There are no osteoblastic or osteolyti c lesions identified. IMPRESSION: 1. Moderate colonic stool. 2. Mild sigmoid diverticulosis. Reviewed, dictated and finalized at location G.
[2021-08-16 15:11] VITALS: BP 108/67; PULSE 67; RESP 16; O2SAT 100
[2021-08-16 15:43] LABS: Basophils Percent Auto 0.1 % (0.2-1.2); Eosinophils Percent Auto 0.1 % (0-4.4); Hematocrit 35.7 % (42.0-52.0); Hemoglobin 11.8 g/dL (14.0-18.0); Immature Granulocyte Absolute 0.31 K/mm3 (0.00-0.031); Lymphocytes Absolute Auto 1.13 K/mm3 (0.9-3.2); Lymphocytes Percent Auto 14.6 % (18.3-44.2); Mean Corpuscular HGB Conc 33.1 g/dl (32-36); Mean Corpuscular Hemoglobin 29.4 pg (26-34); Mean Platelet Volume 8.4 fl (7.4-10.4); Monocytes Absolute Auto 0.5 K/mm3 (0.1-0.6); Monocytes Percent Auto 6.9 % (2.6-8.5); Neutrophils Absolute Auto 5.7 K/mm3 (1.3-6.7); Neutrophils Percent Auto 74.3 % (45.5-73.1); Platelet Count Result 192 k/mm3 (150-375); Red Blood Count 4.01 M/mm3 (4.6-6.20); Red Cell Distribution Width 16.3 % (11.5-14.5); White Blood Count 7.7 K/mm3 (4.5-10.0)
[2021-08-16 15:47] LABS: Add Urine Microscopic? YES; Appearance Urine Clear (Clear); Bilirubin Urine Negative (Negative); Blood Urine Negative (Negative); Color Urine Yellow (Yellow); Glucose Urine UA 3+ mg/dL (Negative); Ketones Urine Negative (Negative); Leukocyte Esterase Ur Negative LEU/UL (Negative); Mucus Urine Rare /lpf; Nitrate Urine Negative (Negative); Protein Urine 1+ mg/dL (Negative); RBC Urine 0-2 /hpf (0-2); Specific Grav Ur 1.021 (1.001-1.035); Squamous Epithelial Cell Urine Rare /hpf (Few); Urobilinogen Urine Negative mg/dL (<2.0); WBC Urine 0-3 /hpf
[2021-08-16 15:53] LABS: Alanine Aminotransferase 28 U/L (4-50); Albumin Level 3.9 g/dL (3.5-5.1); Alkaline Phosphatase 50 U/L (38-126); Anion Gap 8 mmol/L (8-16); Aspartate Amino Transferase 25 U/L (17-59); Bilirubin,Total 0.6 mg/dL (0.2-1.3); Blood Urea Nitrogen 39 mg/dL (9-20); Calcium 8.4 mg/dL (8.4-10.2); Carbon Dioxide 22 mmol/L (22-30); Chloride 103 mmol/L (98-107); Estimated CRCL calculation 49 ml/min; Estimated Glomerular Filt Rate 35; Glucose 172 mg/dL (65-110); Lipase 624 U/L (23-300); Potassium 4.5 mmol/L (3.4-5.0); Sodium 133 mmol/L (137-145)
--- NOTE | 2021-08-16 17:42 | ED.ABDPAIN ---
HPI - Abdominal Pain General Chief Complaint: Abdominal Pain Stated Complaint: abd pain, constipation Time Seen by Provider: 08/16/21 15:26 History of Present Illness HPI narrative: Patient is a 56-year-old male who presents ER with abdominal discomfort and concern for obstruction. Was referred here by urgent care due to this concern. Patient reports he had a bowel movement 4 days ago after taking MiraLAX. He has been taking it daily since then. He has had no additional bowel movements. He has had flatus today. No nausea or vomiting or belching. No loss of consciousness. No history of previous surgeries to the abdomen. Related Data Home Medications Medication Instructions Recorded Confirmed lisinopril 20 mg PO DAILY 07/28/21 07/28/21 metoprolol tartrate 50 mg PO BID 07/28/21 07/28/21 mycophenolate mofetil 500 mg PO BID 07/28/21 07/28/21 Allergies Allergy/AdvReac Type Severity Reaction Status Date / Time No Known Allergies Allergy Verified 07/28/21 09:00 Review of Systems Review of Systems: All systems reviewed & are unremarkable except as noted in HPI and below Constitutional: Constitutional: Denies chills, Denies fever(s) and Denies weakness Cardiovascular: Cardiovascular: Denies chest pain and Denies radiating jaw, neck or arm pain Gastrointestinal: Gastrointestinal: Reports abdominal pain, Reports bloating, Reports constipation, Denies nausea and Denies vomiting Genitourinary: Genitourinary: Denies dysuria, Denies urinary frequency and Denies urinary incontinence [facility] Past Medical History Medical History (Updated 08/16/21 @ 20:14 by Ke Kong MD) Hyperlipidemia Hypertension 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 Treated with plasmapheresis, pulse steroids, and Cytoxan. Now on mycophenolate mofetil. Followed by Dr. Drew Estes. Obstructive sleep apnea on CPAP Mike (2007) Stage 3 chronic kidney disease Surgical History Surgical History No pertinent past surgical history Family History Family History Father Diabetes mellitus Mother Diabetes mellitus Other Cerebrovascular accident Family history of Parkinson's disease Family history of cardiovascular disease Hypertension Social History Social History (Updated 07/28/21 @ 20:53 by Madonna Mota PA-C) Social History: Surrogate decision maker: Chinedu Paz, tan. Code status: Full code. Smoking packs per day: 1 Smoking cigarettes per day: 20.0 Years smoked: 3 Smoking pack-years: 3.00 Smoking status: Former smoker Alcohol intake: never Substance use: never Substance use type: does not use Additional living arrangements comments: Resides in [place]. 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 Spiritual care concerns: No Exam Narrative: GENERAL: Well-appearing, well-nourished, and in no acute distress. HEAD: Normocephalic, atraumatic. ENT: Mucous membranes moist. CHEST: Clear to auscultation. No respiratory distress. HEART: Regular rate and rhythm. Normal peripheral pulses. ABDOMEN: Soft, nontender, nondistended, normal active bowel sounds. EXTREMITIES: Normal range of motion. No edema. SKIN: Warm, dry, no rash. NEURO: Alert and oriented x3. PSYCH: Normal mood and affect. Course Course Emergency Course: Informed of results. D/c home. May continue his miralax. Vital Signs Vital signs: Vital Signs Pulse Rate 67 08/16/21 15:11 Respiratory Rate 16 08/16/21 15:11 Blood Pressure 108/67 08/16/21 15:11 Pulse Oximetry 100 08/16/21 15:11 Pulse Rate 67 08/16/21 15:11 Respiratory Rate 16 08/16/21 15:11 Blood Pressure 108/67 08/16/21 15:11 Pulse Oximetry 100 08/16/21 15:11 MDM - Abdominal Pain Lab Data Result diagrams:
[2021-08-16 20:30] VITALS: BP 114/63; PULSE 57; RESP 18; O2SAT 100
== END 2021-08-16 20:26 | disposition home or self-care (01) ==
PROVIDERS: Family Medicine; Emergency Provider Emergency Medicine
DX: K59.00 Constipation, unspecified (principal); E78.5 Hyperlipidemia, unspecified; G47.33 Obstructive sleep apnea (adult) (pediatric); I12.9 Hypertensive chronic kidney disease with stage 1 through stage 4 chronic kidney disease, or unspecified chronic kidney disease; N18.30 Chronic kidney disease, stage 3 unspecified; M31.7 Microscopic polyangiitis; Z87.891 Personal history of nicotine dependence; K57.30 Diverticulosis of large intestine without perforation or abscess without bleeding
CPT/HCPCS: 36415; 74019; 74177; 80053; 81001; 83690; 85025; 99284; Q9967

== ENCOUNTER → 2022-05-02 10:14 | Outpatient (CLI) | payer OTHER, SELFPAY ==
--- NOTE | ~2022-05-02 | XR_ITS ---
XR chest 2V DATE: 05/02/2022 10:28 INDICATION: Cough for 2 months. TECHNIQUE: 2 views COMPARISON: 07/28/2021 PA and lateral chest FINDINGS: Normal heart size. No hilar or mediastinal enlargement. No pulmonary infiltrate or consolid ation, pleural effusion or pulmonary vascular congestion or pneumothorax is detected. Degenerative spurring of the thoracic spine. IMPRESSION: No active cardiopulmonary disease Reviewed, dictated and finalized at location B. 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
== END ==
PROVIDERS: PCP Family Medicine; Visit Provider Internal Medicine Nephrology
DX: M31.7 Microscopic polyangiitis (principal); I12.9 Hypertensive chronic kidney disease with stage 1 through stage 4 chronic kidney disease, or unspecified chronic kidney disease; N18.32 Chronic kidney disease, stage 3b; E78.5 Hyperlipidemia, unspecified; R80.8 Other proteinuria; R05.1 Acute cough
CPT/HCPCS: 71046

== ENCOUNTER 2022-11-14 17:01 | Emergency (ER) | payer OTHER, SELFPAY ==
--- NOTE | 2022-11-14 17:08 | ED.URI ---
HPI - URI/Sore Throat General Stated Complaint: COVID test Time Seen by Provider: 11/14/22 17:04 Source: patient Mode of arrival: ambulatory Limitations: no limitations History of Present Illness HPI Narrative: Stephane is a 57-year-old male patient presenting to the clinic today requesting a COVID test. He reports he has had a cough for the past 3 days. Denies any other symptoms. 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 MD elicited complaint: sore throat and nasal congestion Related Data Home Medications Medication Instructions Recorded Confirmed lisinopril 20 mg tablet 20 mg PO DAILY 07/28/21 09/03/22 metoprolol tartrate 50 mg tablet 50 mg PO BID 07/28/21 09/03/22 atorvastatin 20 mg tablet 20 mg PO QHS 07/02/22 09/03/22 dapagliflozin propanediol 5 mg 5 mg PO DAILY 07/02/22 09/03/22 tablet (Farxiga) Allergies Allergy/AdvReac Type Severity Reaction Status Date / Time No Known Allergies Allergy Verified 09/03/22 09:25 Review of Systems Review of Systems: Pertinent positives per HPI. Patient denies any fever, chills, rash, headache, visual changes, dizziness, sore throat, shortness of breath, chest pain, palpitations, nausea, vomiting, diarrhea, constipation, abdominal pain, or any urinary issues. 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 Treated with plasmapheresis, pulse steroids, and Cytoxan. Now on mycophenolate mofetil. Followed by Dr. Drew Estes. Obstructive sleep apnea on CPAP Mike (2007) Stage 3 chronic kidney disease Surgical History Surgical History No pertinent past surgical history Family History Family History Father Diabetes mellitus Mother Diabetes mellitus Other Cerebrovascular accident Family history of Parkinson's disease Family history of cardiovascular disease Hypertension Social History Social History Social History: Surrogate decision maker: Chinedu Paz, son. Code status: Full code. Smoking packs per day: 1 Smoking cigarettes per day: 20.0 Years smoked: 3 Smoking pack-years: 3.00 Smoking status: Former smoker Alcohol intake: never Substance use: never Substance use type: does not use Lack of Transportation: No Lack of Food: Never True Current Housing: I Have Housing Concerned About Future Housing: No Difficulty Paying Gas/Electric Bills: No Difficulty Paying for Meds: No Currently Unemployed: YES Education: High School Diploma/GED Difficulty w/ Childcare or Family Care: No Additional living arrangements comments: Resides in [place]. 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 Spiritual care concerns: No Comments At the time of my signature, I reviewed and agree with the nursing past medical, surgical, social, and family history. There is no relevant family history pertinent to the patient complaint. Exam Narrative: General: Well-developed, well nourished, in no apparent distress Head: Normocephalic, atraumatic Eyes: Pupils equally round and reactive to light bilaterally, EOM intact, sclera and conjunctive clear, no discharge, lids normal Ears: TMs intact and clear, ear canals clear, no drainage, grossly hearing normal. Nose: Nares patent, no discharge, no inflammation, no sinus tenderness. Mouth: Oral pharynx without lesions or masses, good dentition, MMM. Neck: Supple, trachea midline, no enlargement of anterior or posterior cervical nodes, no thyroid masses or goiter palpable. Cardio: Regular rate and rhythm, s1 and s2 normal, no murmu
[2022-11-14 17:09] VITALS: BP 133/77; PULSE 86; RESP 16; TEMP 36.6; O2SAT 98
== END 2022-11-14 17:37 | disposition home or self-care (01) ==
PROVIDERS: Emergency Provider Nurse Practitioner Family
DX: R05.9 Cough, unspecified (principal); Z20.822 Contact with and (suspected) exposure to COVID-19; Z87.891 Personal history of nicotine dependence; E78.5 Hyperlipidemia, unspecified; G47.33 Obstructive sleep apnea (adult) (pediatric); I12.9 Hypertensive chronic kidney disease with stage 1 through stage 4 chronic kidney disease, or unspecified chronic kidney disease; N18.30 Chronic kidney disease, stage 3 unspecified
CPT/HCPCS: 87426; 99213; C9803; G0463

== ENCOUNTER 2022-12-17 05:32 | Outpatient (CLI) | payer OTHER, SELFPAY ==
[2022-12-05 12:19] VITALS: BMI 41.8
--- NOTE | 2022-12-05 12:19 | PC.NURSE ---
Pre Radiology instructions Report to the outpatient [facility] on date 12/17/22 at time 0830 for procedure Time: 1030. YOU MAY BE MONITORED AT HOSPITAL FOR UP TO 4 HOURS AFTER YOUR PROCEDURE. A visitor will be allowed to accompany the patient into the hospital. You and your visitor will be asked to self-screen and do not enter if you have any COVID symptoms. A mask is OPTIONAL within the hospital. Patients are to have no food or drink 6 hours prior to procedure time Driving will be restricted after the procedure, you must have a person to drive you home. Labs will be drawn in preop area and once reviewed, you will be taken to radiology area for procedure. When the procedure is completed, you will be taken to outpatient where you will be monitored for several hours. You may have one visitor in this area. Other than holding anti-coagulants, patient may take other medication(s) as scheduled. Prior to your appointment date patients are instructed to hold anti-coagulants after discussing with ordering provider to stop. If unable to discontinue anti-coagulants please notify radiologist. ? No aspirin or warfarin (Coumadin) for 7 days prior to the procedure. ? No clopidogrel (Plavix), ticagrelor (Brilinta), prasugrel (Effient) or dabigatran (Pradaxa) for 5 days prior to the procedure. ? No rivaroxaban (Xarelto), apixaban (Eliquis), dipyridamole (Aggrenox or Persantine) or cilostazol (Pletal) for 2 days prior to the procedure. Medications to discontinue per physician: N/A Date to take last dose: N/A Please leave all valuables, including medications, at home the day of procedure. The hospital will not accept responsibility for valuables. Wear comfortable, loose fitting clothing.? Follow any additional instructions given to you from ordering provider. Telephone instructions given to LYLY JACKSON and asked if any additional questions and then verbalized understanding. Patient advised to call scheduling provider office or registration scheduling [phone] if any additional questions.
[2022-12-17] VITALS (11 sets, daily range): BP systolic 91–131; BP diastolic 48–76; PULSE 51–61; RESP 16–18; TEMP 36.3; O2SAT 96–100
--- NOTE | ~2022-12-17 | US_ITS ---
EXAMINATION: US biopsy renal DATE: 12/17/2022 10:44 INDICATION: Stage IIIB chronic kidney disease TECHNIQUE: The procedure including the risks, benefits, and alternatives was discussed with the patie nt. Risks discussed included bleeding and infection. The patient understood the risks and agreed to p roceed. A timeout was performed to verify the patient's name, date of , and procedure to be p erformed. The skin overlying the left kidney was prepped and draped in usual sterile fashion. Anest hetic was administered with 1% lidocaine subcutaneously. An 18 gauge core biopsy needle was then use d to obtain 3 core biopsy specimens under continuous sonographic guidance. The entry site was cleaned and dressed. There were no immediate complications. FINDINGS: Ultrasound images demonstrate the needle in the kidney. IMPRESSION: 1. Ultrasound-guided random left kidney core needle biopsy. Reviewed, dictated and finalized at location A.
[2022-12-17 09:26] LABS: Mean Platelet Volume 8.8 fl (7.4-10.4); Platelet Count Result 254 k/mm3 (150-375)
[2022-12-17 09:37] LABS: Prothrombin Time 13.2 Seconds (11.1-14.7)
--- NOTE | 2022-12-17 11:36 | SUR.PHASEII ---
Notified Dr. Varghese of hematuria. No new orders at this time. Will continue to monitor patient.
== END 2022-12-17 14:41 | disposition home or self-care (01) ==
PROVIDERS: PCP Family Medicine; Referring Provider Internal Medicine Nephrology; Visit Provider Radiology Diagnostic Radiology
PROC: (CPT 76942; principal; 2022-12-17 10:30)
DX: N18.32 Chronic kidney disease, stage 3b (principal); M31.7 Microscopic polyangiitis
CPT/HCPCS: 36415; 50200; 76942; 85049; 85610; 88300; 88305; 88313; 88329; 88346; 88348; 88350

== ENCOUNTER 2024-07-01 14:08 | Outpatient (CLI) | payer SELFPAY ==
--- NOTE | ~2024-07-01 | XR_ITS ---
EXAMINATION: XR chest 2V 07/01/2024 14:39 INDICATION: Cough PROCEDURE: 2 view chest COMPARISON: Comparison to multiple prior studies sequentially, with oldest reviewed study dated 04/25. FINDINGS: The lungs are clear. The cardiomediastinal silhouette is within normal limits. There are no pleural effusions. There is no pneumothorax suspected. IMPRESSION: 1: NO ACUTE CARDIOPULMONARY DISEASE. Reviewed, dictated and finalized at location B. 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
== END 2024-07-01 14:09 | disposition home or self-care (01) ==
PROVIDERS: PCP Internal Medicine; Visit Provider Internal Medicine
DX: R05.9 Cough, unspecified (principal)
CPT/HCPCS: 71046